=== PATIENT | male | born 2000 | race Hispanic/Latino ===

== ENCOUNTER 2022-04-12 08:42 | Emergency (ER) | payer MEDICAID ==
--- NOTE | 2022-04-12 11:23 | Emergency Department Report ---
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 Patient also endorsed generalized fatigue and also weakness. 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 Patient denies any calf discomfort. Patient also state he feels like he is having a blurred vision where he is seeing things that are blurry. According patient he feels that he is seeinbg objects are not there but denies seeing people. Patient denies any auditory hallucination. I asked the patient to close the left or right eyes separately either one at a time patient denies seeing any blurred vision or seeing objects are not there. Patient denies any other symptoms denies fever chill night sweat dizziness headache tinnitus ear pain runny nose sore throat loss of taste or smell chest pain palpitation short breath cough abdominal pain nausea vomiting diarrhea constipation joint pain muscle pain new rash and heat or cold intolerance. Severity scale (0 -10): 5 - Related Data Allergies Allergy/AdvReac Type Severity Reaction Status Date / Time No Known Allergies Allergy Verified 04/12/22 08:49 ED Review of Systems ROS: Stated complaint: CHEST PAIN/DIZZY/VISION BLURR Other details as noted in HPI Comment: All other systems reviewed and negative Constitutional: no symptoms reported Eyes: vision change (blurry vision; seeing shapes that are not there. ) Respiratory: no symptoms reported, see HPI Cardiovascular: as per HPI Endocrine: no symptoms reported, see HPI Gastrointestinal: as per HPI Musculoskeletal: as per HPI Skin: as per HPI Neurological: as per HPI. denies: headache, weakness, numbness, paresthesias, confusion, abnormal gait, vertigo Psychiatric: as per HPI, visual hallucinations. denies: depression, auditory hallucinations, homicidal thoughts, suicidal thoughts ED Past Medical Hx - Past Medical History Previous Medical History?: No - Social History Smoking Status: Unknown if ever smoked ED Physical Exam - General Limitations: No Limitations General appearance: alert, in no apparent distress - Head Head exam: Present: atraumatic, normocephalic, normal inspection - Eye Eye exam: Present: normal appearance, PERRL, EOMI Pupils: Present: normal accommodation - ENT ENT exam: Present: normal exam, mucous membranes moist - Neck Neck exam: Present: normal inspection, full ROM - Respiratory Respiratory exam: Present: normal lung sounds bilaterally - Cardiovascular Cardiovascular Exam: Present: regular rate, normal rhythm, normal heart sounds - GI/Abdominal GI/Abdominal exam: Present: soft - Extremities Exam Extremities exam: Present: normal inspection, full ROM, normal capillary refill - Back Exam Back exam: Present: normal inspection, full ROM - Neurological Exam Neurological exam: Present: alert, oriented X3, CN II-XII intact, normal gait - Psychiatric Psychiatric exam: Present: normal affect, normal mood - Skin Skin exam: Present: normal color ED Course Vital Signs 04/12/22 04/12/22 04/12/22 08:46 09:29 17:18 Temperature 98.8 F Pulse Rate 77 74 Respiratory 16 18 Rate Blood Pressure 138/80 130/79 [Left] O2 Sat by Pulse 99 99 97 Oximetry - Reevaluation(s) Reevaluation #1: 04/12/22 15:03 STILL PENDING US/CTPA; WILL SIGN OUT MY PATIENT CARE TO MY COLLEAGUE, DR TARANGO. ED Medical Decision Making - Lab Data Result diagrams: 04/12/22 11:18 04/12/22 11:18 Critical Care Time: No Critical care attestation.: If time is entered above; I have spent that time in minutes in the direct care of this critically ill patient, excluding procedure time. ED Disposition Clinical Impression: Chest pain, Shortness of breath Disposition: 01 HOME / SELF CARE / HOMELESS Is pt being admited?: No Does the pt Need Aspirin: No Condition: Stable Instructions: Shortness of Breath, Adult, [id number], Nonspecific Chest Pain, Adult Additional Instructions: Please follow-up with your primary care doctor, tomorrow. Go to your nearest ER if symptoms return or if they get worse. Referrals: PRIMARY CARE, [Primary Care Provider] - 3-5 Days Forms: Work/School Release Form(ED) Time of Disposition: 06:22 Print Language: WELSH
[2022-04-12 12:07] LABS: Alanine Aminotransferase 20 units/L (7-56); Albumin 4.5 g/dL (3.9-5); BUN/Creatinine Ratio 12; Blood Urea Nitrogen 11 mg/dL (9-20); Calcium 9.6 mg/dL (8.4-10.2); Hemolysis Index 6
[2022-04-12 12:08] LABS: Hematocrit 45.3 % (35.5-45.6); Hemoglobin 15.1 gm/dl (11.8-15.2); Mean Corpuscular HGB Conc 33 % (32-34); Mean Corpuscular Volume 89 fl (84-94); Platelet Count 306 K/mm3 (140-440); Red Cell Distribution Width 13.5 % (13.2-15.2)
--- NOTE | 2022-04-12 12:14 | XRay Report ---
CHEST 1 VIEW 04/12/2022 11:30 AM INDICATION / CLINICAL INFORMATION: chest pain. COMPARISON: None available. FINDINGS: SUPPORT DEVICES: None. HEART / MEDIASTINUM: No significant abnormality. LUNGS / PLEURA: No significant pulmonary or pleural abnormality. No pneumothorax. ADDITIONAL FINDINGS: No significant additional findings. IMPRESSION: 1. No acute findings. Signer Name: Parmjit Molina MD Signed: 04/12/2022 11:55 AM Workstation Name: [id number]
--- NOTE | 2022-04-12 15:00 | Cat Scan Report ---
CT angio chest INDICATION / CLINICAL INFORMATION: R/O PULMONARY EMBOLISM. TECHNIQUE: Axial CT images were obtained through the chest after injection of IV contrast. 3 plane MIP and/or 3D reconstructions were produced. All CT scans at this location are performed using CT dose reduction f or ALARA by means of automated exposure control. COMPARISON: None available. FINDINGS: PULMONARY ARTERIES: No pulmonary emboli. HEART: No significant abnormality identified. No significant coronary atherosclerotic calcifications. MEDIASTINUM / RADHAMES: No significant abnormality. LUNGS: Lungs are clear No pleural effusion. No pneumothorax. ADDITIONAL FINDINGS: None. UPPER ABDOMEN: No acute findings. SKELETAL STRUCTURES: No significant osseous abnormality. IMPRESSION: 1. No CT evidence for pulmonary embolism. 2. No acute findings. Signer Name: Joni Rand MD Signed: 04/12/2022 1:09 PM Workstation Name: [id number]
--- NOTE | 2022-04-12 15:01 | Vascular Lab Report ---
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 TECHNIQUE: Duplex doppler imaging was performed through the veins of both lower extremities using augusto ous compression and other maneuvers. COMPARISON: None available. FINDINGS: RIGHT COMMON FEMORAL VEIN: Negative. RIGHT FEMORAL VEIN: Negative. RIGHT POPLITEAL VEIN: Negative. RIGHT CALF VEINS: Negative. LEFT COMMON FEMORAL VEIN: Negative. LEFT FEMORAL VEIN: Negative. LEFT POPLITEAL VEIN: Negative. LEFT CALF VEINS: Negative. ADDITIONAL FINDINGS: None. IMPRESSION: 1. No sonographic evidence for DVT in either lower extremity. Signer Name: Edward Merrill MD Signed: 04/12/2022 1:18 PM Workstation Name: [id number]
[2022-04-12 17:21] VITALS: BP 130/79
--- NOTE | 2022-04-13 09:38 | Electrocardiograph Report ---
[facility] Test Date: 2022-04-12 Test Time: 09:24:26 Pat Name: BONNIE LOPEZ Department: Room: Gender: M Winterizer: GP : 2000 Requested By: JORGE OROZCO Order Number: [id number] Reading MD: Amor Sanabria Measurements Intervals [place] Rate: 79 P: 23 [place]: 141 QRS: -1 QRSD: 108 T: 20 QT: 383 QTc: 440 Interpretive Statements Sinus rhythm No previous ECG available for comparison Electronically Signed On 04-13-2022 9:38:26 EDT by Amor Sanabria
== END 2022-04-12 17:18 | disposition home or self-care (01) ==
LOC: ED 08:42
DX: R07.9 Chest pain, unspecified (principal); R06.02 Shortness of breath
CPT/HCPCS: 36415; 71045; 71275; 80053; 83735; 83880; 84484; 85027; 85379; 93005; 93970; 99285; Q9967; 99284